=== PATIENT | male | born 1985 | race African-American/Black ===

== ENCOUNTER 2017-08-10 08:57 | Outpatient (CLI) | payer OTHER | END 2017-08-10 09:05 | disposition home or self-care (01) | LOC: SONOGRAMA 08:57 | DX: R10.30 Lower abdominal pain, unspecified (principal) ==

== ENCOUNTER 2017-08-28 04:56 | Day surgery (SDC) | payer OTHER ==
[~2017-08-28 04:56] MED LIST: FENOFIBRATE134 MG PO; LOVAZA1 GM PO; VASOTEC10 MG PO
== END 2017-08-28 14:00 | disposition home or self-care (01) ==
LOC: CIR.AMB 04:56
DX: K42.9 Umbilical hernia without obstruction or gangrene (principal)

== ENCOUNTER 2021-05-12 18:00 | Emergency (ER) | payer OTHER ==
[~2021-05-12] VITALS: Ht 167.6 cm; Wt 89.8 kg
== END 2021-05-12 23:31 | disposition home or self-care (01) ==
LOC: ER 18:00
DX: M62.838 Other muscle spasm (principal); V49.40XA Driver injured in collision with unspecified motor vehicles in traffic accident, initial encounter; Y92.410 Unspecified street and highway as the place of occurrence of the external cause